=== PATIENT | male | born 1945 | race Caucasian/White ===

== ENCOUNTER 2022-01-17 18:43 | Inpatient (IN) ==
[2022-01-17] MEDS ORDERED: Acetaminophen 325 MG TABLET PO PRN (21:36)
[2022-01-17] MEDS ORDERED: Naloxone 0.4 MG/ML INJ IVP PRN (21:36)
[2022-01-17] MEDS ORDERED: *HR* OxyCODONE Immed Rel 5 MG TABLET PO PRN (21:36)
[2022-01-17] MEDS ORDERED: Ondansetron 4 MG/2 ML VIAL IVP PRN (21:36)
[2022-01-17] MEDS ORDERED: Melatonin 3 MG TABLET PO PRN (21:36)
[2022-01-17] MEDS ORDERED: *HR* HYDROcodone/Acet 5/325 mg TABLET PO PRN (21:36)
[2022-01-17] MEDS ORDERED: *HR* Promethazine 25 MG/ML VIAL IM PRN (21:36)
[2022-01-17] MEDS ORDERED: Ringers Solution, Lactated 1,000 ML IVC ONE (23:22)
[2022-01-18 00:57] LABS: Basophils % 0.1 %; Eosinophils # 0.2 K/mcL (0.0-0.6); Hematocrit 20.7 % (37.5-50.1); Hemoglobin 6.6 g/dL (12.9-16.9); Immature Granulocytes % 0.7 % (0-4); Lymphocytes # 1.1 K/mcL (0.6-4.6); Lymphocytes % 13.1 %; Mean Corpuscular HGB Conc 31.9 g/dL (31.6-35.5); Mean Corpuscular Hemoglobin 30.8 pg (28.0-33.3); Mean Corpuscular Volume 96.7 fL (83.0-100.0); Mean Platelet Volume 9.7 fL (9.4-12.4); Monocytes # 0.7 K/mcL (0.0-1.3); Monocytes % 8.1 %; Neutrophils # 6.2 K/mcL (1.6-8.9); Platelet Count 128 K/mcL (140-400); Red Blood Count 2.14 M/mcL (4.19-5.50); White Blood Count 8.2 K/mcL (4.3-11.1)
[2022-01-18 01:05] LABS: Alanine Aminotransferase 9 Units/L (7-52); Albumin 2.9 g/dL (3.5-5.7); Albumin/Globulin Ratio 1.8 (1.1-2.2); Alkaline Phosphatase 45 Units/L (34-104); Aspartate Amino Transferase 14 Units/L (13-39); BUN/Creatinine Ratio 53 (6-26); Bilirubin,Total 0.4 mg/dL (0.3-1.0); Blood Urea Nitrogen 72 mg/dL (8-23); Calcium 8.2 mg/dL (8.6-10.3); Carbon Dioxide 23 mEq/L (23-29); Chloride 108 mEq/L (98-107); Chol/HDL Ratio 2.8 (0-4.9); Cholesterol 95 mg/dL (< 200); Globulin 1.6 g/dL (2.4-3.5); Glucose 154 mg/dL (70-105); HDL Cholesterol 34 mg/dL (40-59); LDL Cholesterol,Calculated 24 mg/dL (< 100); Magnesium 1.9 mg/dL (1.6-2.6); Osmolality,Calculated 312 (280-300); Phosphorous 3.2 mg/dL (2.7-4.5); Potassium 3.9 mEq/L (3.5-5.1); Sodium 139 mEq/L (136-145); Total Protein 4.5 g/dL (6.4-8.9); Triglycerides 184 mg/dL (< 150); eGFR For African Americans > 60 (> 60); eGFR For Non-African Americans 51 (> 60)
[2022-01-18 01:27] LABS: INR 1.1; Prothrombin Time 12.7 Seconds (9.4-12.1)
[2022-01-18] MEDS ORDERED: 0.9 % Sodium Chloride 250 ML IVC SCH (03:15)
[2022-01-18] MEDS ORDERED: Pantoprazole 40 MG VIAL IVP SCH (06:00)
[2022-01-18] MEDS ORDERED: 0.9 % Sodium Chloride 250 ML ONE ×2 (07:02→12:23)
[2022-01-18] MEDS: Budesonide/Formoterol 160/4.5 1 PUFF INH IH SCH ×2 (07:44→22:46)
[2022-01-18] MEDS ORDERED: *HR* Metoprolol 5 MG/5 ML VIAL IVP ONE ×3 (07:54→21:55)
[2022-01-18 09:34] LABS: Thyroid Stimulating Hormone 1.758 mcIU/mL (0.340-5.600)
[2022-01-18 10:32] LABS: Folate 16.4 ng/mL (3.0-16.0)
[2022-01-18 12:04] LABS: Hematocrit 17.9 % (37.5-50.1)
[2022-01-18 12:07] LABS: Hemoglobin 5.8 g/dL (12.9-16.9)
[2022-01-18 12:19] LABS: Hematocrit 18.7 % (37.5-50.1); Hemoglobin 6.1 g/dL (12.9-16.9); Mean Corpuscular HGB Conc 32.6 g/dL (31.6-35.5); Mean Corpuscular Hemoglobin 31.6 pg (28.0-33.3); Mean Corpuscular Volume 96.9 fL (83.0-100.0); Mean Platelet Volume 9.8 fL (9.4-12.4); Platelet Count 113 K/mcL (140-400); Red Blood Count 1.93 M/mcL (4.19-5.50); Red Cell Distribution Width 15.3 % (11.5-14.5)
[2022-01-18 12:20] LABS: White Blood Count 15.5 K/mcL (4.3-11.1)
[2022-01-18] MEDS ORDERED: Metoclopramide 10 MG/2 ML VIAL IVP ONE (12:31)
[2022-01-18] MEDS ORDERED: cefTRIAXone 1,000 MG in 0.9 % Sodium Chloride 10 ML IVP ONE (12:33)
[2022-01-18] MEDS ORDERED: Octreotide 400 MCG in 0.9 % Sodium Chloride 100 ML IVC SCH (12:45)
[2022-01-18 12:49] LABS: Albumin 2.6 g/dL (3.5-5.7); Albumin/Globulin Ratio 1.4 (1.1-2.2); Bilirubin,Direct 0.1 mg/dL (0.0-0.2); Bilirubin,Indirect 0.6 mg/dL (0.0-1.0); Bilirubin,Total 0.7 mg/dL (0.3-1.0); Calcium 7.9 mg/dL (8.6-10.3); Globulin 1.8 g/dL (2.4-3.5); Phosphorous 4.3 mg/dL (2.7-4.5); Potassium 4.7 mEq/L (3.5-5.1); Total Protein 4.4 g/dL (6.4-8.9); Troponin I 0.4 ng/mL (< 0.04)
[2022-01-18] MEDS: Pantoprazole 40 MG in 0.9 % Sodium Chloride Mini Bag 100 ML IVC SCH ×2 (13:33→19:51)
[2022-01-18] MEDS ORDERED: *HR* Propofol 200 MG/20 ML VIAL IVP ONE (14:18)
[2022-01-18] MEDS ORDERED: *HR* Etomidate 40 MG/20 ML VIAL IVP ONE (14:18)
[2022-01-18] MEDS ORDERED: Ondansetron 4 MG/2 ML VIAL ONE (14:18)
[2022-01-18] MEDS ORDERED: *HR* Succinylcholine 200 MG/10 ML VIAL IVP ONE (14:18)
[2022-01-18] MEDS ORDERED: Lidocaine -MPF 2% 2 ML VIAL ONE (14:18)
[2022-01-18] MEDS ORDERED: Albumin Human 5% 0 GM/0 ML IV.SOLN ONE (14:29)
[2022-01-18] MEDS ORDERED: *HR* EPINEPHrine 1 MG/10 ML SYRINGE INTRATRACH PRN (15:02)
[2022-01-18] MEDS ORDERED: Albuterol 2.5 MG/3 ML NEBULIZER IH PRN (15:18)
[2022-01-18] MEDS ORDERED: Ipratropium Neb 0.5 MG NEBULIZER IH PRN (15:18)
[2022-01-18] MEDS ORDERED: Ondansetron 4 MG/2 ML VIAL IVP PRN (15:18)
[2022-01-18] MEDS ORDERED: Naloxone 0.4 MG/ML INJ IVP PRN (15:18)
[2022-01-18] MEDS ORDERED: Isovue-370 500 ML BOTTLE IVP ONE (15:23)
[2022-01-18] MEDS: 0.9 % Sodium Chloride 1,000 ML IVC SCH (19:59)
[2022-01-18 20:11] LABS: Hematocrit 24.3 % (37.5-50.1)
[2022-01-18 20:12] LABS: Hemoglobin 8.3 g/dL (12.9-16.9)
[2022-01-19] MEDS: Pantoprazole 40 MG in 0.9 % Sodium Chloride Mini Bag 100 ML IVC SCH ×5 (01:17→20:46)
[2022-01-19 01:20] LABS: Basophils % 0.1 %; Eosinophils % 0.1 %; Hematocrit 23.2 % (37.5-50.1)
[2022-01-19 01:22] LABS: Hemoglobin 7.9 g/dL (12.9-16.9); Immature Granulocytes % 1.7 % (0-4); Immature Platelets 2.6 % (1.1-6.1); Lymphocytes # 1.3 K/mcL (0.6-4.6); Lymphocytes % 9.2 %; Mean Corpuscular HGB Conc 34.1 g/dL (31.6-35.5); Mean Corpuscular Hemoglobin 32.2 pg (28.0-33.3); Mean Corpuscular Volume 94.7 fL (83.0-100.0); Mean Platelet Volume 10.1 fL (9.4-12.4); Monocytes # 0.8 K/mcL (0.0-1.3); Monocytes % 5.7 %; Neutrophils # 11.6 K/mcL (1.6-8.9); Nucleated Red Blood Cells 0.4 /100 WBC (0); Platelet Count 100 K/mcL (140-400); Red Blood Count 2.45 M/mcL (4.19-5.50); Red Cell Distribution Width 15.4 % (11.5-14.5); Segmented Neutrophils % 83.2 %; White Blood Count 13.9 K/mcL (4.3-11.1)
[2022-01-19 01:47] LABS: Platelet Estimate Decreased (Normal)
[2022-01-19 02:08] LABS: Calcium 8.2 mg/dL (8.6-10.3); Magnesium 1.9 mg/dL (1.6-2.6); Phosphorous 4.4 mg/dL (2.7-4.5); Potassium 4.7 mEq/L (3.5-5.1)
[2022-01-19] MEDS: 0.9 % Sodium Chloride 1,000 ML IVC SCH (02:44)
[2022-01-19] MEDS ORDERED: Sodium Bicarbonate 75 MEQ in 0.45 % Sodium Chloride 1,000 ML IVC SCH (07:30)
[2022-01-19] MEDS ORDERED: Perflutren Lipid Microsphere 1.3 ML in 0.9 % Sodium Chloride 8.7 ML IVP PRN (07:48)
[2022-01-19 08:23] LABS: Hemoglobin 7.6 g/dL (12.9-16.9)
[2022-01-19] MEDS ORDERED: 0.9 % Sodium Chloride 250 ML ONE ×2 (08:25→09:02)
[2022-01-19] MEDS ORDERED: *HR* Digoxin 0.5 MG/2 ML AMPUL IVP STA (09:59)
[2022-01-19] MEDS: Budesonide/Formoterol 160/4.5 1 PUFF INH IH SCH ×2 (11:02→21:19)
[2022-01-19 14:22] LABS: Hematocrit 25.3 % (37.5-50.1); Hemoglobin 8.2 g/dL (12.9-16.9)
[2022-01-19 18:57] LABS: Hematocrit 22.1 % (37.5-50.1); Hemoglobin 7.5 g/dL (12.9-16.9)
[2022-01-20] MEDS: Pantoprazole 40 MG in 0.9 % Sodium Chloride Mini Bag 100 ML IVC SCH ×5 (01:55→23:37)
[2022-01-20 06:29] LABS: Hemoglobin 7.2 g/dL (12.9-16.9); Mean Corpuscular HGB Conc 31.3 g/dL (31.6-35.5); Mean Corpuscular Hemoglobin 31.6 pg (28.0-33.3); Mean Platelet Volume 9.7 fL (9.4-12.4); Red Blood Count 2.28 M/mcL (4.19-5.50)
[2022-01-20 06:30] LABS: Mean Corpuscular Volume 100.9 fL (83.0-100.0); Platelet Count 65 K/mcL (140-400)
[2022-01-20 06:50] LABS: Albumin 2.8 g/dL (3.5-5.7); Albumin/Globulin Ratio 1.6 (1.1-2.2); Bilirubin,Total 0.6 mg/dL (0.3-1.0); Calcium 7.7 mg/dL (8.6-10.3); Globulin 1.7 g/dL (2.4-3.5); Magnesium 1.8 mg/dL (1.6-2.6); Phosphorous 2.5 mg/dL (2.7-4.5); Potassium 3.8 mEq/L (3.5-5.1); Total Protein 4.5 g/dL (6.4-8.9)
[2022-01-20] MEDS: Budesonide/Formoterol 160/4.5 1 PUFF INH IH SCH ×2 (07:43→20:20)
[2022-01-20 11:06] LABS: Hematocrit 20.9 % (37.5-50.1); Hemoglobin 7.1 g/dL (12.9-16.9)
[2022-01-20 18:09] LABS: Hematocrit 22.3 % (37.5-50.1); Hemoglobin 7.2 g/dL (12.9-16.9)
[2022-01-21 02:02] LABS: Hemoglobin 6.7 g/dL (12.9-16.9); Immature Granulocytes % 0.6 % (0-4)
[2022-01-21 02:04] LABS: Basophils % 0.2 %; Eosinophils # 0.3 K/mcL (0.0-0.6); Hematocrit 20.6 % (37.5-50.1); Immature Platelets 3.4 % (1.1-6.1); Lymphocytes # 1.3 K/mcL (0.6-4.6); Lymphocytes % 21.6 %; Mean Corpuscular HGB Conc 32.5 g/dL (31.6-35.5); Mean Corpuscular Volume 95.4 fL (83.0-100.0); Mean Platelet Volume 9.9 fL (9.4-12.4); Monocytes # 0.5 K/mcL (0.0-1.3); Monocytes % 7.5 %; Nucleated Red Blood Cells 0.8 /100 WBC (0); Red Blood Count 2.16 M/mcL (4.19-5.50); Red Cell Distribution Width 16.3 % (11.5-14.5); Segmented Neutrophils % 65.1 %; White Blood Count 6.2 K/mcL (4.3-11.1)
[2022-01-21 02:05] LABS: Platelet Count 78 K/mcL (140-400)
[2022-01-21 02:24] LABS: BUN/Creatinine Ratio 27 (6-26); Blood Urea Nitrogen 37 mg/dL (8-23); Calcium 7.6 mg/dL (8.6-10.3); Carbon Dioxide 27 mEq/L (23-29); Chloride 108 mEq/L (98-107); Glucose 107 mg/dL (70-105); Magnesium 1.9 mg/dL (1.6-2.6); Osmolality,Calculated 297 (280-300); Phosphorous 3.1 mg/dL (2.7-4.5); Potassium 3.9 mEq/L (3.5-5.1); Sodium 139 mEq/L (136-145); eGFR For African Americans > 60 (> 60); eGFR For Non-African Americans 50 (> 60)
[2022-01-21] MEDS: Pantoprazole 40 MG in 0.9 % Sodium Chloride Mini Bag 100 ML IVC SCH ×5 (04:45→23:24)
[2022-01-21] MEDS ORDERED: 0.9 % Sodium Chloride 250 ML ONE (05:50)
[2022-01-21] MEDS: Cholecalciferol (D-3) 1,000 UNIT (25MCG) TABLET PO SCH (09:39)
[2022-01-21] MEDS: Budesonide/Formoterol 160/4.5 1 PUFF INH IH SCH ×2 (10:00→19:52)
[2022-01-21 11:48] LABS: Hematocrit 25.6 % (37.5-50.1)
[2022-01-21 11:49] LABS: Hemoglobin 8.5 g/dL (12.9-16.9)
[2022-01-21] MEDS ORDERED: Furosemide 20 MG/2 ML VIAL IVP ONE (12:54)
[2022-01-21 17:23] LABS: Hematocrit 24.8 % (37.5-50.1); Hemoglobin 8.4 g/dL (12.9-16.9)
[2022-01-22 03:02] LABS: Immature Granulocytes % 0.5 % (0-4); Mean Corpuscular Volume 93.5 fL (83.0-100.0); Red Blood Count 2.46 M/mcL (4.19-5.50)
[2022-01-22 03:04] LABS: Basophils % 0.2 %; Eosinophils # 0.3 K/mcL (0.0-0.6); Hemoglobin 7.7 g/dL (12.9-16.9); Immature Platelets 3.2 % (1.1-6.1); Lymphocytes # 1.3 K/mcL (0.6-4.6); Lymphocytes % 22.9 %; Mean Corpuscular HGB Conc 33.5 g/dL (31.6-35.5); Mean Corpuscular Hemoglobin 31.3 pg (28.0-33.3); Mean Platelet Volume 10.3 fL (9.4-12.4); Monocytes # 0.5 K/mcL (0.0-1.3); Monocytes % 7.9 %; Neutrophils # 3.7 K/mcL (1.6-8.9); Red Cell Distribution Width 16.5 % (11.5-14.5); Segmented Neutrophils % 63.5 %; White Blood Count 5.8 K/mcL (4.3-11.1)
[2022-01-22 03:09] LABS: Platelet Count 80 K/mcL (140-400)
[2022-01-22 03:19] LABS: Calcium 7.8 mg/dL (8.6-10.3); Magnesium 1.8 mg/dL (1.6-2.6); Potassium 3.7 mEq/L (3.5-5.1)
[2022-01-22] MEDS: Pantoprazole 40 MG in 0.9 % Sodium Chloride Mini Bag 100 ML IVC SCH ×4 (03:49→15:41)
[2022-01-22] MEDS: Budesonide/Formoterol 160/4.5 1 PUFF INH IH SCH ×2 (07:46→19:57)
[2022-01-22] MEDS: Furosemide 20 MG/2 ML VIAL IVP SCH (07:56)
[2022-01-22] MEDS: Cholecalciferol (D-3) 1,000 UNIT (25MCG) TABLET PO SCH (07:56)
[2022-01-22 09:33] LABS: Hematocrit 25.6 % (37.5-50.1); Hemoglobin 8.5 g/dL (12.9-16.9)
[2022-01-22 10:22] LABS: Bilirubin,Urine Negative (Negative); Blood,Urine Negative (Negative); Clarity,Urine Clear (Clear); Color,Urine Colorless (Yellow); Glucose,Urine (UA) Normal (Normal); Ketones,Urine Negative (Negative); Leukocyte Esterase,Urine Negative (Negative); Nitrite,Urine Negative (Negative); PH,Urine 6.5 pH Units (5.0-8.0); Protein,Urine Negative (Neg-Trace); Specific Gravity,Urine 1.008 (1.010-1.025); Urobilinogen,Urine Normal (Normal)
[2022-01-22 11:01] LABS: Sodium, Urine 121.7 mEq/L
[2022-01-22 14:59] LABS: Hematocrit 26.1 % (37.5-50.1); Hemoglobin 8.7 g/dL (12.9-16.9)
[2022-01-22 21:46] LABS: Hemoglobin 8.5 g/dL (12.9-16.9)
[2022-01-23 05:04] LABS: Eosinophils # 0.4 K/mcL (0.0-0.6); Eosinophils % 7.1 %; Hematocrit 23.5 % (37.5-50.1); Hemoglobin 7.7 g/dL (12.9-16.9); Immature Granulocytes % 0.4 % (0-4); Immature Platelets 3.8 % (1.1-6.1); Lymphocytes # 1.2 K/mcL (0.6-4.6); Lymphocytes % 23.2 %; Mean Corpuscular HGB Conc 32.8 g/dL (31.6-35.5); Mean Corpuscular Hemoglobin 30.6 pg (28.0-33.3); Mean Corpuscular Volume 93.3 fL (83.0-100.0); Mean Platelet Volume 10.1 fL (9.4-12.4); Monocytes # 0.4 K/mcL (0.0-1.3); Monocytes % 7.7 %; Neutrophils # 3.1 K/mcL (1.6-8.9); Platelet Count 109 K/mcL (140-400); Red Blood Count 2.52 M/mcL (4.19-5.50); Red Cell Distribution Width 15.9 % (11.5-14.5); Segmented Neutrophils % 61.6 %; White Blood Count 5.1 K/mcL (4.3-11.1)
[2022-01-23 05:21] LABS: Calcium 7.8 mg/dL (8.6-10.3); Magnesium 1.8 mg/dL (1.6-2.6); Phosphorous 3.9 mg/dL (2.7-4.5); Potassium 4.1 mEq/L (3.5-5.1)
[2022-01-23] MEDS: Furosemide 20 MG/2 ML VIAL IVP SCH (07:35)
[2022-01-23] MEDS: Cholecalciferol (D-3) 1,000 UNIT (25MCG) TABLET PO SCH (07:35)
[2022-01-23] MEDS: Budesonide/Formoterol 160/4.5 1 PUFF INH IH SCH ×2 (07:39→20:03)
[2022-01-23] MEDS ORDERED: Aspirin Enteric Coated 81 MG Tablet PO SCH (12:00)
[2022-01-24 07:24] VITALS: TEMP 98.9
[2022-01-24] MEDS: Cholecalciferol (D-3) 1,000 UNIT (25MCG) TABLET PO SCH (07:38)
[2022-01-24] MEDS ORDERED: amLODIPine 5 MG TABLET PO SCH (09:00)
[2022-01-24] MEDS: Budesonide/Formoterol 160/4.5 1 PUFF INH IH SCH (09:31)
[2022-01-24 10:47] LABS: Hematocrit 26.9 % (37.5-50.1); Hemoglobin 8.7 g/dL (12.9-16.9); Mean Corpuscular HGB Conc 32.3 g/dL (31.6-35.5); Mean Corpuscular Hemoglobin 30.1 pg (28.0-33.3); Mean Corpuscular Volume 93.1 fL (83.0-100.0); Mean Platelet Volume 10.1 fL (9.4-12.4); Platelet Count 133 K/mcL (140-400); Red Blood Count 2.89 M/mcL (4.19-5.50); Red Cell Distribution Width 15.8 % (11.5-14.5)
[2022-01-24 11:26] VITALS: PULSE 63
[2022-01-24 12:53] VITALS: BP 160/64; O2SAT 97
[2022-01-24] MEDS ORDERED: *HR* Propofol 200 MG/20 ML VIAL IVP ONE ×2 (12:59→13:35)
[2022-01-24] MEDS ORDERED: Lidocaine -MPF 2% 2 ML VIAL ONE (12:59)
== END 2022-01-24 15:20 | disposition home or self-care (01) | DRG 377 ==
LOC: 3ANU → SUATTDRO 20:47 → 3NENU 01-18 13:52 → SUATTDRO 01-18 13:58
PROVIDERS: ADMIT Student in an Organized Health Care Education/Training Program; ATTEND Internal Medicine
PROC: ENDOEBX (2022-01-18 15:00)